=== PATIENT | female | born 1995 | race Caucasian/White ===

== ENCOUNTER 2024-10-27 11:30 | Outpatient (CLI) | payer BC, SELFPAY ==
--- NOTE | ~2024-10-27 | US_ITS ---
Pelvic ultrasound. Clinical History: Dysmenorrhea Technique: Realtime transabdominal and transvaginal scanning of the pelvis was performed. Color flow Doppler and Doppler spectral analysis were performed. Findings: The uterus is anteverted. The endometrial stripe has a thickness of 3 mm. No focal mass is identified. The right ovary measures 4.4 x 2.0 x 2.6 cm. No significant right ovarian or adnexal mass is seen. The left ovary measures 2.6 x 1.8 x 2.9 cm. No significant left ovarian or adnexal mass is seen. There is no evidence of free fluid in the cul de sac. Impression: Unremarkable pelvic ultrasound. Reviewed, dictated and finalized at location . Impression: Unremarkable pelvic ultrasound.
== END 2024-10-27 11:31 | disposition home or self-care (01) ==
LOC: MICIMG 11:33
DX: N94.5 Secondary dysmenorrhea (principal); Z87.42 Personal history of other diseases of the female genital tract
CPT/HCPCS: 76856